=== PATIENT | male | born 1970 | race Hispanic/Latino ===

== ENCOUNTER 2019-07-21 23:20 | Emergency (ER) | payer OTHER ==
[2019-07-21] MEDS ORDERED: NEOMYCIN/POLYMYXIN/HC OTIC SUSP 10ML BOTTLE ONE (23:52)
== END 2019-07-21 23:57 | disposition home or self-care (01) ==
LOC: EDH 23:20
DX: H60.8X1 Other otitis externa, right ear (principal); I10 Essential (primary) hypertension; E11.9 Type 2 diabetes mellitus without complications